=== PATIENT | male | born 1990 | race Caucasian/White ===

== ENCOUNTER → 2022-01-06 | Outpatient (CLI) | payer OTHER ==
--- NOTE | 2022-01-06 12:49 | US ---
EXAMINATION TYPE: US abdomen complete DATE OF EXAM: 01/06/2022 COMPARISON: NONE CLINICAL HISTORY: R10.13 epigastric pain. pain after eating and drinkings for a few weeks, now on med s and feels better EXAM MEASUREMENTS: Liver Length: 15.9 cm Gallbladder Wall: 0.3 cm CBD: 0.3 cm Spleen: 11.9 cm Right Kidney: 11.4 x 5.3 x 5.4 cm Left Kidney: 11.9 x 5.1 x 5.6 cm Pancreas: wnl Liver: wnl Gallbladder: wnl Evidence for sonographic Barrera's sign: no CBD: wnl Spleen: wnl Right Kidney: wnl Left Kidney: wnl Upper IVC: wnl Abd Aorta: wnl The liver is homogenous. The intrahepatic portion of the IVC and proximal , mid, and distal abdomina l aorta are within normal limits. There is no evidence of shadowing mobile cholelithiasis. Common b ile duct is unremarkable. The visualized portions of the pancreas are homogenous. The spleen is unr emarkable. Kidneys are symmetric and free of hydronephrosis. No renal lesions are seen. IMPRESSION: Unremarkable study.
== END | disposition home or self-care (01) ==
LOC: RADUSWWP 07:41
PROVIDERS: ATTEND Family Medicine
DX: R10.13 Epigastric pain (principal)
CPT/HCPCS: 76700